=== PATIENT | female | born 1985 | race Caucasian/White ===

== ENCOUNTER 2018-01-01 10:46 | Day surgery (SDC) | payer OTHER ==
[~2018-01-01 10:46] MED LIST: PROPOFOL 200 MG INJ
[2018-01-01] MEDS ORDERED: LIDOCAINE 2% (SDV) 5 ML INJ (13:29)
[2018-01-01] MEDS ORDERED: PROPOFOL 40 ML (13:29)
== END 2018-01-01 15:08 | disposition home or self-care (01) ==
LOC: GIL 10:46
DX: K21.9 Gastro-esophageal reflux disease without esophagitis (principal); D12.5 Benign neoplasm of sigmoid colon; E78.5 Hyperlipidemia, unspecified
CPT/HCPCS: 43239; 84703; 88305; 88312